=== PATIENT | female | born 1960 | race Asian ===

== ENCOUNTER 2020-01-27 19:05 | Inpatient (IN) | payer BC, OTHER ==
[~2020-01-27] VITALS: Ht 160 cm; Wt 64.2 kg
[2020-01-27] MEDS ORDERED: METO50 PO (19:31)
[2020-01-27] MEDS ORDERED: LOSA-88 PO (19:31)
[2020-01-27] MEDS ORDERED: HYDR-1475 PO (19:31)
[2020-01-27 20:14] LABS: EOSINOPHILS % (AUTO) 2.4 % (1.0-6.0); HEMATOCRIT 38.2 % (36-46); LYMPHOCYTES # (AUTO) 1.2 K/uL (1.0-4.8); LYMPHOCYTES % (AUTO) 21.8 % (22.0-44.0); MEAN CORPUSCULAR VOLUME 91 fL (80-100); MONOCYTES # (AUTO) 0.4 K/uL (0.1-1.0); MONOCYTES % (AUTO) 6.8 % (2.0-9.0); NEUTROPHILS # (AUTO) 3.6 K/uL (1.8-7.7); PLATELET COUNT (AUTO) 238 K/uL (150-450); RED BLOOD CELL COUNT(AUTO) 4.19 MIL/uL (4.00-5.20); RED CELL DISTRIBUTION WIDTH 12.4 % (11.5-14.5)
[2020-01-27 20:21] LABS: ALANINE AMINOTRANSFERASE 32 U/L (12-78); ALKALINE PHOSPHATASE 67 U/L (46-116); ANION GAP 10 mmol/L (8-16); ASPARTATE AMINOTRANSFERASE 21 U/L (15-37); BILIRUBIN,TOTAL 0.7 mg/dL (0.1-1.0); CALCIUM, TOTAL 8.9 mg/dL (8.8-10.5); CARBON DIOXIDE 27 mmol/L (22-29); CHLORIDE 96 mmol/L (98-107); CREATININE 0.83 mg/dL (0.60-1.30); GLOMERULAR FILTR. RATE CALC > 60 mL/min (>60); GLUCOSE,RANDOM 148 mg/dL (70-110); SODIUM SERUM 133 mmol/L (136-145); TOTAL PROTEIN, SERUM 7.3 g/dL (6.4-8.2); UREA NITROGEN, BLOOD 14 mg/dL (7-18)
[2020-01-27 20:23] LABS: POTASSIUM 2.6 mmol/L (3.5-5.1)
[2020-01-27] MEDS ORDERED: POTASSIUM CHLORIDE 20 MEQ ER TABLET PO PRN (20:30)
[2020-01-27 20:34] LABS: APPEARANCE,URINE CLEAR (CLEAR); BILIRUBIN,URINE NEGATIVE (NEGATIVE); GLUCOSE, URINE (UA) NEGATIVE (NEGATIVE); KETONES,URINE NEGATIVE (NEGATIVE); LEUKOCYTE ESTERASE ,URINE MODERATE (NEGATIVE); NITRATE,URINE NEGATIVE (NEGATIVE); OCCULT BLOOD,URINE NEGATIVE (NEGATIVE); PROTEIN,URINE NEGATIVE (NEGATIVE); UROBILINOGEN,URINE 0.2 mg/dL (<=1.0)
[2020-01-27 20:36] LABS: B-TYPE NATRIURETIC PEPTIDE 25 pg/mL (0-100)
[2020-01-27 20:43] LABS: BACTERIA,URINE None Seen /HPF (None Seen); RBC,URINE 0-2 /HPF (0-2); SQUAMOUS EPITHELIAL CELL,UR Few /LPF (None Seen); TRANSITIONAL EPI CELLS,URINE Rare /LPF (None Seen)
[2020-01-27] MEDS ORDERED: FAMOTIDINE 10 MG/ML 2 ML VIAL IVP ONE (20:45)
[2020-01-27] MEDS ORDERED: MAGNESIUM SULFATE 1 GM in DEXTROSE 5%-WATER 50 ML IV ONE (20:45)
[2020-01-27] MEDS ORDERED: ASPIRIN 81 MG CHEWABLE TABLET PO ONE (21:00)
[2020-01-27] MEDS ORDERED: ACETAMINOPHEN 325 MG TABLET PO PRN (21:00)
[2020-01-27] MEDS ORDERED: ONDANSETRON HCL 4 MG/2 ML VIAL IVP PRN (21:00)
[2020-01-27] MEDS ORDERED: 0.9% SODIUM CHLORIDE 10 ML SYRINGE IVP PRN (21:00)
[2020-01-27] MEDS ORDERED: SODIUM CHLORIDE 0.9% 250 ML IV ONE (23:09)
[2020-01-27 23:23] VITALS: BP 158/85
[2020-01-27] MEDS: POTASSIUM CHL 10 MEQ/WATER 50 ML IV PRN (23:30)
[2020-01-28] MEDS: POTASSIUM CHL 10 MEQ/WATER 50 ML IV PRN ×2 (01:19→04:49)
[2020-01-28] MEDS ORDERED: PNEUMOCOCCAL VACCINE POLYVALENT 0.5 ML VIAL [PPSV23] IM ONE (04:00)
[2020-01-28 04:42] VITALS: BP 130/73
[2020-01-28] MEDS ORDERED: 0.9% SODIUM CHLORIDE 10 ML SYRINGE IVP PRN (05:15)
[2020-01-28] MEDS ORDERED: ACETAMINOPHEN 325 MG TABLET PO PRN (05:15)
[2020-01-28] MEDS ORDERED: SODIUM CHLORIDE 0.9% 1,000 ML IV SCH (05:15)
[2020-01-28] MEDS ORDERED: ONDANSETRON HCL 4 MG/2 ML VIAL IVP PRN (05:15)
[2020-01-28] MEDS ORDERED: MORPHINE SULFATE 2 MG/ML SYRINGE IVP PRN (05:15)
[2020-01-28] MEDS ORDERED: MAGNESIUM HYDROXIDE SUSPENSION 30 ML UDCUP PO PRN (05:15)
[2020-01-28] MEDS ORDERED: OxyCODONE HCL/ACETAMINOPHEN 5-325 MG TABLET PO PRN ×2 (05:15)
[2020-01-28] MEDS: NITROGLYCERIN 2% (1 GM=INCH) PACKET TP SCH ×2 (06:27→12:00)
[2020-01-28 08:02] VITALS: BP 136/71
[2020-01-28 08:55] LABS: CHOL/HDL RATIO 2.9 (3.9-5.7); MAGNESIUM 2.1 mg/dL (1.80-2.40); POTASSIUM 4.2 mmol/L (3.5-5.1)
[2020-01-28] MEDS ORDERED: ASPIRIN 325 MG TABLET PO SCH (09:00)
[2020-01-28] MEDS ORDERED: FAMOTIDINE 10 MG/ML 2 ML VIAL IVP SCH (09:00)
[2020-01-28] MEDS ORDERED: DOCUSATE SODIUM 100 MG CAPSULE PO SCH (09:00)
[2020-01-28 11:20] VITALS: BP 144/72
[2020-01-28] MEDS ORDERED: ASPI-728 PO (14:07)
[2020-01-28] MEDS ORDERED: LOSA100T2 PO (14:15)
== END 2020-01-28 14:40 | disposition home or self-care (01) | DRG 313 ==
LOC: EMS 19:06 → 5N 21:24 → EEVIPCON 21:24
PROVIDERS: ADMIT Internal Medicine; ATTEND Internal Medicine
DX: R07.89 Other chest pain (principal); E87.1 Hypo-osmolality and hyponatremia; E87.6 Hypokalemia; E83.42 Hypomagnesemia; I11.9 Hypertensive heart disease without heart failure; R09.89 Other specified symptoms and signs involving the circulatory and respiratory systems; R11.2 Nausea with vomiting, unspecified
CPT/HCPCS: 83735; 84132; 93005; 93306; J3475; J3480; J3490; J7030; J7050; J7060

== ENCOUNTER 2020-10-23 09:08 | Day surgery (SDC) | payer OTHER ==
[2020-10-22 13:06] LABS: COVID AG,FIA SOURCE NASOPHARYNGEAL
[~2020-10-23] VITALS: Ht 157.5 cm; Wt 65.9 kg
[~2020-10-23 09:08] MED LIST: AMLO5TAB66 PO; LOSA100T58 PO; METO50 PO; SODIUM CHLORIDE 0.9% 1,000 ML ONE
[2020-10-23] MEDS ORDERED: SODIUM CHLORIDE 0.9% 1,000 ML IV ONE (09:30)
[2020-10-23] MEDS ORDERED: OXYGEN THERAPY IH SCH (11:45)
[2020-10-23] MEDS ORDERED: PROPOFOL 1% 20 ML VIAL IVP ONE (12:00)
[2020-10-23] MEDS ORDERED: LIDOCAINE/PF 2% 5 ML VIAL INJ ONE (12:00)
== END 2020-10-23 13:00 | disposition home or self-care (01) ==
LOC: SURGERY 09:08
PROVIDERS: ATTEND Specialist
DX: Z12.11 Encounter for screening for malignant neoplasm of colon (principal); I10 Essential (primary) hypertension; Z79.899 Other long term (current) drug therapy; Z20.828 Contact with and (suspected) exposure to other viral communicable diseases
CPT/HCPCS: 45378; 87426; C9803; J2704; J3490; J7030

== ENCOUNTER 2021-03-30 01:20 | Emergency (ER) | payer OTHER ==
[~2021-03-30] VITALS: Ht 157.5 cm; Wt 65.9 kg
[~2021-03-30 01:20] MED LIST changes: -SODIUM CHLORIDE 0.9% 1,000 ML ONE
[2021-03-30 02:17] LABS: BASOPHILS % (AUTO) 1.3 % (0.0-2.0); EOSINOPHILS % (AUTO) 5.7 % (1.0-6.0); HEMOGLOBIN 13.2 g/dL (12.0-16.0); LYMPHOCYTES % (AUTO) 30.9 % (22.0-44.0); MEAN CORPUSCULAR HEMOGLOBIN 30.7 pg (26.0-34.0); MEAN CORPUSCULAR HGB CONC 33.8 G/dL (31.0-37.0); MEAN CORPUSCULAR VOLUME 91 fL (80-100); MONOCYTES # (AUTO) 0.5 K/uL (0.1-1.0); MONOCYTES % (AUTO) 7.9 % (2.0-9.0); NEUTROPHILS # (AUTO) 3.5 K/uL (1.8-7.7); NEUTROPHILS % (AUTO) 54.2 % (40.0-70.0); PLATELET COUNT (AUTO) 228 K/uL (150-450); RED BLOOD CELL COUNT(AUTO) 4.29 MIL/uL (4.00-5.20); RED CELL DISTRIBUTION WIDTH 12.7 % (11.5-14.5)
[2021-03-30 02:26] LABS: ANION GAP 10 mmol/L (8-16); CALCIUM, TOTAL 9.2 mg/dL (8.8-10.5); CARBON DIOXIDE 27 mmol/L (22-29); CHLORIDE 99 mmol/L (98-107); CREATININE 0.93 mg/dL (0.60-1.30); GLOMERULAR FILTR. RATE CALC > 60 mL/min (>60); GLUCOSE,RANDOM 120 mg/dL (70-110); POTASSIUM 3.5 mmol/L (3.5-5.1); SODIUM SERUM 136 mmol/L (136-145); UREA NITROGEN, BLOOD 13 mg/dL (7-18)
[2021-03-30 02:30] LABS: PROTHROMBIN TIME 10.6 SEC (9.4-11.6)
[2021-03-30 02:32] LABS: ALANINE AMINOTRANSFERASE 32 U/L (12-78); ALBUMIN 4.2 g/dL (3.4-5.0); ALKALINE PHOSPHATASE 98 U/L (46-116); ASPARTATE AMINOTRANSFERASE 19 U/L (15-37); BILIRUBIN,TOTAL 0.4 mg/dL (0.1-1.0); TOTAL PROTEIN, SERUM 7.4 g/dL (6.4-8.2)
[2021-03-30 02:39] LABS: APPEARANCE,URINE CLEAR (CLEAR); BILIRUBIN,URINE NEGATIVE (NEGATIVE); GLUCOSE, URINE (UA) NEGATIVE (NEGATIVE); KETONES,URINE NEGATIVE (NEGATIVE); LEUKOCYTE ESTERASE ,URINE SMALL (NEGATIVE); NITRATE,URINE NEGATIVE (NEGATIVE); OCCULT BLOOD,URINE NEGATIVE (NEGATIVE); PROTEIN,URINE NEGATIVE (NEGATIVE); UROBILINOGEN,URINE 0.2 mg/dL (<=1.0)
[2021-03-30 02:40] LABS: B-TYPE NATRIURETIC PEPTIDE 46 pg/mL (0-100)
[2021-03-30] MEDS ORDERED: ASPIRIN 81 MG CHEWABLE TABLET PO ONE (02:45)
[2021-03-30 02:49] LABS: CREATINE KINASE, TOTAL ONLY 93 U/L (26-192)
[2021-03-30 02:53] LABS: BACTERIA,URINE None Seen /HPF (None Seen); RBC,URINE 0-2 /HPF (0-2); SQUAMOUS EPITHELIAL CELL,UR Few /LPF (None Seen)
[2021-03-30 03:33] LABS: COVID AG,FIA SOURCE NASOPHARYNGEAL
[2021-03-30 05:30] VITALS: BP 132/66
== END 2021-03-30 05:44 | disposition home or self-care (01) ==
LOC: EMS 01:23
DX: R07.89 Other chest pain (principal); R20.0 Anesthesia of skin; I10 Essential (primary) hypertension; Z20.822 Contact with and (suspected) exposure to COVID-19
CPT/HCPCS: 71045; 80053; 81001; 82550; 83880; 84484; 85025; 85610; 85730; 87426; 93005; 99285; 36415-L1; 36415-TC

== ENCOUNTER → 2021-10-30 | Outpatient (CLI) | payer OTHER ==
[2021-10-30 12:29] VITALS: BP 144/79
[2021-10-30 12:34] VITALS: BP 148/85
== END | disposition home or self-care (01) ==
LOC: CARDMN 08:30
PROVIDERS: ATTEND Internal Medicine Cardiovascular Disease
DX: R07.9 Chest pain, unspecified (principal)
CPT/HCPCS: 78452; 93017

== ENCOUNTER → 2022-04-16 | Outpatient (CLI) | payer OTHER | END | disposition home or self-care (01) | LOC: MSR 06:27 | PROVIDERS: ATTEND Internal Medicine | DX: M79.89 Other specified soft tissue disorders (principal); M79.672 Pain in left foot; M21.6X9 Other acquired deformities of unspecified foot; M25.40 Effusion, unspecified joint | CPT/HCPCS: 84550 ==

== ENCOUNTER → 2023-12-03 | Outpatient (CLI) | payer OTHER ==
[~2023-12-03] MED LIST changes: -LOSA100T58 PO; +LOSA100T59 PO
== END | disposition home or self-care (01) ==
LOC: RADMN 13:14
PROVIDERS: ATTEND Podiatrist
DX: M65.872 Other synovitis and tenosynovitis, left ankle and foot (principal); Q74.2 Other congenital malformations of lower limb(s), including pelvic girdle; M76.822 Posterior tibial tendinitis, left leg; M79.672 Pain in left foot
CPT/HCPCS: 73721